=== PATIENT | male | born 1990 | race Caucasian/White ===

== ENCOUNTER 2019-11-18 12:45 | Emergency (ER) | payer MEDICAID, OTHER ==
[~2019-11-18] VITALS: Ht 177.8 cm; Wt 113.6 kg
[~2019-11-18 12:45] MED LIST: NOCURR
[2019-11-18 13:18] VITALS: BP 130/88
== END 2019-11-18 13:21 | disposition home or self-care (01) ==
LOC: EMS 12:53
DX: S61.452A Open bite of left hand, initial encounter (principal); F12.90 Cannabis use, unspecified, uncomplicated; W54.0XXA Bitten by dog, initial encounter; Y93.89 Activity, other specified; Y92.89 Other specified places as the place of occurrence of the external cause; Y99.8 Other external cause status
CPT/HCPCS: 99283; Z7502